=== PATIENT | male | born 1940 | race Caucasian/White ===

== ENCOUNTER 2021-06-23 21:06 | Emergency (ER) | payer OTHER, MEDICARE ==
[~2021-06-23] VITALS: Ht 175.3 cm; Wt 79.0 kg
[~2021-06-23 21:06] MED LIST: ASPIRIN EC LOW81 MG PO; FISH OIL1000 MG PO; GLIPIZIDE ER5 MG PO; ISOSORB MONO30 MG PO; LIPITOR80 M1 PO; LISINOPRIL2.5 MG PO; METFORMIN500 M2 PO; METOPROL TAR25 MG PO; PANTOPRAZOLE SO40 MG PO; PLAVIX75 MG PO; ZPAK PO
[2021-06-23] MEDS ORDERED: VITAMIN D-31000 UNIT PO (22:41)
[2021-06-23] MEDS ORDERED: VITAMIN B-COMPL1 TAB PO (22:42)
[2021-06-23 22:45] VITALS: BP 150/72
== END 2021-06-23 22:50 | disposition home or self-care (01) | DRG 395 ==
LOC: ED 21:06
DX: K40.90 Unilateral inguinal hernia, without obstruction or gangrene, not specified as recurrent (principal); E11.9 Type 2 diabetes mellitus without complications; Z95.1 Presence of aortocoronary bypass graft; Z79.84 Long term (current) use of oral hypoglycemic drugs